=== PATIENT | male | born 1945 | race Caucasian/White ===

== ENCOUNTER 2016-09-12 05:45 | Inpatient (IN) | payer OTHER, MEDICARE ==
[~2016-09-12] VITALS: Ht 170.2 cm; Wt 90.7 kg
[~2016-09-12 05:45] MED LIST: AMBIEN CR12.5 MG PO; VALIUM2 MG PO; VITAMIN D2000 UNI1 PO; XANAX0.5 MG PO; ZEGERID40 MG PO; ZOLOFT100 MG PO; ZOLOFT50 MG PO
[2016-09-12 06:42] VITALS: BP 156/91
[2016-09-12] MEDS ORDERED: BACTRIM,SEPT1 TABLET PO (10:13)
[2016-09-12] MEDS ORDERED: PERCOCET 5/31 TABLET PO (10:13)
[2016-09-12 15:29] VITALS: BP 138/95
[2016-09-12 15:58] LABS: HEMATOCRIT 36.5 % (38.0-50.0); MCV 96.3 FL (86-99)
[2016-09-12 20:08] VITALS: BP 151/81
[2016-09-12 23:29] VITALS: BP 119/69
[2016-09-13 03:43] VITALS: BP 133/71
[2016-09-13 09:02] VITALS: BP 126/58
[2016-09-13 13:21] VITALS: BP 114/62
[2016-09-13 17:30] VITALS: BP 123/62
[2016-09-13 23:22] VITALS: BP 141/72
[2016-09-14 07:12] LABS: HEMATOCRIT 28.7 % (38.0-50.0); MCH 32.1 PG (29.0-34.0); MCHC 33.4 G/DL (30.0-36.0); MEAN PLAT.VOLUME 11.2 uM^3 (9.0-12.4); PLATELET COUNT 114 K/uL (156-360); RBC DIS.WIDTH-CV 13.1 % (11.8-14.6); RBC DIS.WIDTH-SD 45.4 % (39-53); WHITE BLOOD COUNT 7.3 K/uL (4.1-10.2)
[2016-09-14 07:13] LABS: RED BLOOD COUNT 2.99 M/uL (4.00-5.50)
[2016-09-14 07:16] LABS: ANION GAP 6 MEQ/L (2-14); CHLORIDE 100 MEQ/L (99-109); GFR ESTIMATE (CALCULATED) > 59 mL/min/; GLUCOSE 112 mg/dL (70-99); POTASSIUM 3.6 MEQ/L (3.7-5.4); SAMPLE HEMOLYSIS CHECK 0; SAMPLE ICTERIC CHECK 0; SAMPLE LIPEMIA CHECK 0; SODIUM 138 MEQ/L (136-147); UREA NITROGEN (BUN) 11 mg/dL (9-23)
[2016-09-14 08:00] VITALS: BP 155/77
== END 2016-09-14 13:14 | disposition home or self-care (01) | DRG 708 ==
LOC: 5EAST 05:45 → 2SOUTH 05:45 → 5EAST 15:15
PROVIDERS: Nurse Practitioner Adult Health; Urology
DX: C61 Malignant neoplasm of prostate (principal); K21.9 Gastro-esophageal reflux disease without esophagitis; K44.9 Diaphragmatic hernia without obstruction or gangrene; F41.9 Anxiety disorder, unspecified; F32.9 Major depressive disorder, single episode, unspecified; Z87.891 Personal history of nicotine dependence
CPT/HCPCS: 80048; 85014; 85018; 85027; 88305; 88309; J0330; J0690; J1100; J1170; J1885; J2405; J2765; J3010; J7050; J7120